=== PATIENT | male | born 1985 | race Caucasian/White ===

== ENCOUNTER 2018-04-26 18:10 | Emergency (ER) | payer SELFPAY ==
[2018-04-26] MEDS: LIDOCAINE 1% (MDV) 20 ML INJ SC (20:50)
== END 2018-04-26 22:07 | disposition home or self-care (01) ==
LOC: FTE 18:10
DX: L60.0 Ingrowing nail (principal); R40.2412 Glasgow coma scale score 13-15, at arrival to emergency department
CPT/HCPCS: 11765; 99283-25